=== PATIENT | male | born 1980 | race Caucasian/White ===

== ENCOUNTER → 2021-08-18 | Emergency (ER) | payer OTHER ==
[~2021-08-18] VITALS: Ht 175.3 cm; Wt 65.8 kg
[~2021-08-18] MED LIST: SEPTRA DS TABLE1 TAB PO
== END | disposition home or self-care (01) ==
LOC: ER 10:17
DX: M79.674 Pain in right toe(s) (principal)

== ENCOUNTER 2022-03-26 00:45 | Emergency (ER) | payer OTHER ==
[~2022-03-26] VITALS: Ht 175.3 cm; Wt 67.1 kg
[2022-03-26] MEDS ORDERED: CYCLOBENZAPRINE10 MG PO (09:45)
== END 2022-03-26 10:15 | disposition home or self-care (01) ==
LOC: ER 00:45
DX: R10.32 Left lower quadrant pain (principal); M54.50 Low back pain, unspecified; Z88.8 Allergy status to other drugs, medicaments and biological substances